=== PATIENT | male | born 1965 ===

== ENCOUNTER 2020-12-16 07:45 | Inpatient (IN) | payer OTHER ==
[~2020-12-16] VITALS: Ht 182.9 cm; Wt 110.7 kg
[2020-12-16] MEDS ORDERED: ZESTRIL10 M1 PO (11:18)
[2020-12-16] MEDS ORDERED: LIPITOR20 MG PO (11:18)
[2020-12-16] MEDS ORDERED: COZAAR50 MG PO (11:19)
[2020-12-16] MEDS ORDERED: TRAZODONE HCL50 MG PO (11:19)
[2020-12-16] MEDS ORDERED: CLONAZEPAM2 M1 PO (11:19)
[2020-12-24] MEDS ORDERED: PERCOCET 5-3251 EACH PO (14:57)
[2020-12-24] MEDS ORDERED: ELIQUIS2.5 MG PO (14:57)
[2020-12-24] MEDS ORDERED: DUI500 PO (14:57)
== END 2020-12-24 19:57 | DRG 470 ==
LOC: O/R 12-22 05:35 → SURG 12-22 05:35 → SURH 12-22 07:45 → SURG 12-22 19:30
PROVIDERS: ADMIT Orthopaedic Surgery; ATTEND Orthopaedic Surgery
PROC: 0SRC0J9 Replacement of Right Knee Joint with Synthetic Substitute, Cemented, Open Approach (ICD-10-PCS; principal; 2020-12-22 09:15)
DX: T84.032A Mechanical loosening of internal right knee prosthetic joint, initial encounter (principal); D62 Acute posthemorrhagic anemia; T84.012A Broken internal right knee prosthesis, initial encounter; M17.11 Unilateral primary osteoarthritis, right knee; I10 Essential (primary) hypertension; Z96.651 Presence of right artificial knee joint; E11.9 Type 2 diabetes mellitus without complications; Z20.822 Contact with and (suspected) exposure to COVID-19